=== PATIENT | female | born 1980 | race Caucasian/White ===

== ENCOUNTER 2017-09-20 14:39 | Emergency (ER) | payer BC ==
[2017-09-20 14:48] VITALS: BP 142/93
--- NOTE | 2017-09-20 15:26 | UC ---
Skin Complaint HPI - History of Current Complaint Chief Complaint: UCSkin Time Seen by Provider: 09/20/17 14:51 Stated Complaint: SKIN COMPLAINT Hx Obtained From: Patient Hx Last Menstrual Period: 12/28/14 Onset/Duration: Sudden Onset - pt reports having a large itchy spot on her back and next day got a smaller one on her L upper arm. saw derm and was dx with "eczema", Rx'd steroid cream not helpful. went to PCP and dx with scabies. treated x 1 with elimite. no better. now shest, back and arms have a slightly itchy rash. none on hands or face. Had mild URI 10-14 days prior to outbreak of rash Onset Severity: Mild Current Severity: Moderate Aggravating Factor(s): Nothing Alleviating Factor(s): Nothing Associated Signs & Symptoms: Positive: Negative - Allergy/Home Medications Allergies/Adverse Reactions: Allergies Allergy/AdvReac Type Severity Reaction Status Date / Time No Known Allergies Allergy Verified 01/24/15 07:40 Home Medications: Home Medications Permethrin 5% CREAM* 1 applic TOPICAL SEE INSTRUCTIONS 09/20/17 [History Confirmed 09/20/17] Review of Systems Constitutional: Negative Skin: Rash Eyes: Negative ENT: Negative Respiratory: Negative Cardiovascular: Negative Gastrointestinal: Negative Neurological: Negative Psychological: Anxious - reports feeling very nervous about rash and scabies dx Is Patient Immunocompromised?: No All Other Systems Reviewed And Are Negative: Yes PMH/Surg Hx/FS Hx/Imm Hx Previously Healthy: Yes - Surgical History Surgical History: None - Family History Known Family History: Positive: None - Social History Occupation: Employed Full-time Lives: With Family Alcohol Use: Weekly Alcohol Amount: 3-4 weekly Substance Use Type: None Smoking Status (MU): Former Smoker Have You Smoked in the Last Year: No When Did the Patient Quit Smoking/Using Tobacco: 2000 Physical Exam Triage Information Reviewed: Yes Appearance: Well-Appearing, No Pain Distress, Well-Nourished Vital Signs: Initial Vital Signs Temp 97.9 F 09/20/17 14:41 Pulse 74 09/20/17 14:41 Resp 18 09/20/17 14:41 BP 142/93 09/20/17 14:41 Pulse Ox 100 09/20/17 14:41 Vital Signs Reviewed: Yes Eyes: Positive: Conjunctiva Clear Neck exam: Normal Respiratory Exam: Normal Cardiovascular Exam: Normal Neurological Exam: Normal Psychological Exam: Normal Skin: Positive: rashes - mildly erythemic, oval [place] pattern rash on trunk, upper arms and ant upper thighs. resolving larger spot upper L arm Course/Dx - Differential Diagnoses - Skin Complaint Differential Diagnoses: Cellulitis, Contact Dermatitis, Eczema, Local Allergic Reaction, Scabies, Other - pitaryasis rosea - Diagnoses Provider Diagnoses: pitaryasis rosea Discharge - Discharge Plan Condition: Good Disposition: HOME Patient Education Materials: Pityriasis rosea (ED) Referrals: Toyin Coronado MD [Primary Care Provider] - Additional Instructions: use over the counter claritin or benadryl for itching if needed return if you have any further concerns
== END 2017-09-20 15:41 | disposition home or self-care (01) ==
LOC: UCEAST 14:39
DX: L42 Pityriasis rosea (principal)
CPT/HCPCS: 99211; G0463